=== PATIENT | female | born 1995 | race Caucasian/White ===

== ENCOUNTER 2017-10-28 19:26 | Emergency (ER) | payer OTHER ==
[2017-10-28 19:49] LABS: URINE HCG POC HCG NEGATIVE (Negative)
[2017-10-28 20:04] LABS: ADD MAN DIFF? NO
[2017-10-28] MEDS: IV NORMAL SALINE 1000ML BAG 1,000 ML IV ×2 (20:05→21:25)
[2017-10-28] MEDS: ONDANSETRON PF 4 MG/2 ML VIAL. IV ×2 (20:05→21:28)
[2017-10-28 20:06] LABS: BASO # 0.1 x10^3/uL (0.0-0.2); BASO % 1 % (0-3); EOS % 3 % (0-3); HEMATOCRIT 46.3 % (36.0-47.0); HEMOGLOBIN 15.5 g/dL (12.0-15.5); LYMPH # 1.3 x10^3/uL (1.0-4.8); LYMPH % 14 % (24-48); MEAN CORPUSCULAR HEMOGLOBIN 30 pg (25-35); MEAN CORPUSCULAR HGB CONC 34 g/dL (31-37); MEAN CORPUSCULAR VOLUME 90 fL (79-100); MONO % 5 % (0-9); NEUT % 77 % (31-73); PLATELET COUNT 267 x10^3/uL (140-400); RED BLOOD COUNT 5.15 x10^6/uL (3.50-5.40)
[2017-10-28] MEDS: fentaNYL PF VIAL 100 MCG/2 ML VIAL IV (20:06)
[2017-10-28 20:07] LABS: BILIRUBIN,URINE NEGATIVE (NEG); GLUCOSE,URINE NEGATIVE (NEG); NITRITE,URINE NEGATIVE (NEG); PH,URINE 5.5; PROTEIN,URINE NEGATIVE (NEG-TRACE); UROBILINOGEN,URINE 0.2 mg/dL (0.2 mg/dL)
[2017-10-28 20:17] LABS: INR 1.1 (0.8-1.1); PARTIAL THROMBOPLASTIN TIME 23 SEC (24-38); PROTHROMBIN TIME PATIENT 13.2 SEC (11.7-14.0)
[2017-10-28 20:21] LABS: BACTERIA,URINE MODERATE /HPF (0-FEW); SQUAMOUS EPITHELIAL CELL,UR MOD /LPF
[2017-10-28 20:22] LABS: ANION GAP 15 (6-14); BLOOD UREA NITROGEN 11 mg/dL (7-20); CALCIUM 8.7 mg/dL (8.5-10.1); CARBON DIOXIDE 21 mmol/L (21-32); CHLORIDE 107 mmol/L (98-107); GFR 69.3; GLUCOSE 99 mg/dL (70-99); POTASSIUM 3.9 mmol/L (3.5-5.1); SODIUM 143 mmol/L (136-145)
[2017-10-28 20:30] LABS: ALBUMIN 3.8 g/dL (3.4-5.0); ALK PHOS 81 U/L (46-116); ALT (SGPT) 15 U/L (14-59); AST (SGOT) 15 U/L (15-37); DIRECT BILIRUBIN 0.1 mg/dL (0.0-0.2); TOTAL BILIRUBIN 0.4 mg/dL (0.2-1.0); TOTAL PROTEIN 7.6 g/dL (6.4-8.2)
[2017-10-28 20:35] LABS: CKMB INDEX 0.9 % (0-4); CKMB MASS < 0.5 ng/mL (0.0-3.6); CREATINE KINASE 55 U/L (26-192)
[2017-10-28 21:16] LABS: BARBITURATES NEG (NEG); BENZODIAZEPINES NEG (NEG); CANNABINOIDS NEG (NEG); COCAINE NEG (NEG); METHADONE NEG (NEG); OPIATES NEG (NEG); PHENCYCLIDINE NEG (NEG)
[2017-10-28 21:17] LABS: ETHANOL, URINE NEG (NEG)
[2017-10-28] MEDS: MORPHINE SULFATE 4 MG/ML DISP.SYRIN. IV/SQ (21:25)
[2017-10-28] MEDS: IOHEXOL 300 MG/ML 100ML VIAL. IV (21:54)
[2017-10-28] MEDS ORDERED: CONTRAST GIVEN MC (22:00)
== END 2017-10-28 23:10 | disposition home or self-care (01) ==
LOC: ER 19:26
DX: K52.9 Noninfective gastroenteritis and colitis, unspecified (principal); J45.909 Unspecified asthma, uncomplicated
CPT/HCPCS: 36415; 74177; 80048; 80076; 80307; 81001; 81025; 82553; 83690; 85025; 85610; 85730; 87086; 96361; 96374; 96375; 96376; 99285-25; J2270; J2405; J3010; J7030; Q9967